=== PATIENT | female | born 1970 | race Caucasian/White ===

== ENCOUNTER 2016-09-18 10:46 | Emergency (ER) | payer BC ==
[~2016-09-18] VITALS: Ht 170.2 cm; Wt 89.0 kg
[2016-09-18 10:51] VITALS: BP 129/95; PULSE 110; RESP 16; TEMP 98.5; O2SAT 99
[2016-09-18] MEDS ORDERED: LEVO.075 PO (11:04)
[2016-09-18] MEDS ORDERED: KETOROLAC TROMETHAMINE 60 MG/2 ML (IM) VIAL IM ONE (11:15)
[2016-09-18] MEDS ORDERED: ORPHENADRINE INJ 60 MG/2 ML AMP IM ONE (11:15)
--- NOTE | 2016-09-18 11:25 | PD ---
HPI Chief Complaint: Musculoskeletal Complaint Time Seen by Provider: 11:22 Travel History International Travel<30 days: No Contact w/Intl Traveler<30days: No Traveled to known affect area: No History of Present Illness HPI Patient is a 46-year-old female with chief complaint of right shoulder pain. Present for 4 days. She has had problems off and on for several months similarly. She states after waking recently she had tightness in the posterior shoulder. Occasional have burning pain there as well that radiates down the posterior arm and into the right fifth finger. She has an occasional paresthesia in the fourth and fifth digit but denies sensation loss or weakness. She denies any neck pain or history of neck trauma or surgery. She denies any trauma to the shoulder. She states ibuprofen does help and doesn't be better after she moves it some. No specific provocative maneuvers but with movements it does appear to be worse. She denies any chest pain or shortness of breath. She denies any fevers. She denies . PFSH Past Medical History Thyroid Disease: Yes ?: Not LMP: YESTERDAY Past Surgical History Other Surgery: Yes (ADENOIDS, LASIK) Social History Alcohol Use: Yes Tobacco Use: No Substance Use: No Allergies-Medications (Allergen,Severity, Reaction): Coded Allergies: No Known Allergies (Unverified , 09/18/16) Reported Meds & Prescriptions Reported Meds & Active Scripts Active Reported Synthroid (Levothyroxine Sodium) 75 Mcg Tab 75 Mcg PO DAILY Review of Systems Except as stated in HPI: all other systems reviewed are Neg Physical Exam Narrative GENERAL: Well-developed and well-nourished adult female in no acute distress. SKIN: Warm and dry. Good turgor without tenting. HEAD: Normocephalic and atraumatic. EYES: PERRL bilaterally, 5mm. EOMI bilaterally. No injection or icterus present. No proptosis. Lids without edema or erythema. ENT: Buccal mucosa pink and moist. Oropharynx free of erythema, tonsillar hypertrophy, masses, swelling, asymmetry and exudates. Uvula midline and airway patent. NECK: Supple, no midline tenderness, crepitus or step-offs. Trachea midline, no JVD. No cervical or facial lymphadenopathy. CARDIOVASCULAR: Regular rate and rhythm without murmurs, rubs, clicks or gallops. Radial pulses 2+ bilaterally. RESPIRATORY: Clear to auscultation bilaterally with symmetrical rise and fall, no distress or use of accessory muscles. MUSCULOSKELETAL: Right shoulder and upper back is grossly unremarkable, no edema or discoloration. The right upper trapezius is an active spasm is tender to palpation. No pain with palpation of the rhomboids or scapula. No thoracic midline tenderness. Patient has pain with palpation of the right medial clavicular joint as well. Range of motion in the shoulder but does have some pain with abduction and flexion. Positive empty can test for supraspinatus pain. No gait disturbances. Patient freely moving all four extremities spontaneously. Extremities without clubbing, cyanosis, or edema. No obvious deformities. NEUROLOGIC: CN II-XII grossly intact. Awake and alert. Strength 5/5 bilateral shoulder flexion, shoulder extension, shoulder abduction, shoulder adduction, elbow flexion, elbow extension. Sensation intact and strength 5/5 over radial, median, and ulnar nerve distributions bilaterally. Bilateral triceps, biceps, brachioradialis DTRs 2+. Negative bilateral Baker sign. Normal speech. PSYCHIATRIC: Appropriate mood and affect; insight and judgment normal. Data Data Last Documented VS Vital Signs Date Time Temp Pulse Resp B/P Pulse Ox O2 Delivery O2 Flow Rate FiO2 09/18/16 10:51 98.5 110 16 129/95 99 Orders Spine, Cervical Compl(Rxm2aex) (09/18/16 11:15) Ketorolac Inj (Toradol Inj) (09/18/16 11:15) Orphenadrine Inj (Norflex Inj) (09/18/16 11:15) Shoulder, Complete (>2vws) (09/18/16 11:25) [facility] Medical Decision Making Medical Screen Exam Complete: Yes Emergency Medical Condition: Yes Interpretation(s) Last 24 hours Impressions Shoulder X-Ray 09/18/16 1125 Signed Impressions: Service Date/Time: Sunday, September 18, 2016 11:31 - CONCLUSION: Normal examination for a patient of this age. Ge Saldaña MD Cervical Spine X-Ray 09/18/16 1115 Signed Impressions: Service Date/Time: Sunday, September 18, 2016 11:22 - CONCLUSION: 1. Primary degenerative changes involving the mid to lower cervical spine. 2. Disc space narrowing at C5-6 and C6-7. Ge Saldaña MD Differential Diagnosis Cervical HNP versus Rotator cuff tendinitis versus muscle spasm versus acromioclavicular arthritis versus acromial bursitis versus muscle spasm Narrative Course Patient is a 46-year-old female with right shoulder pain for 4 days. She denies any trauma or injury. Has had similar symptoms in the past. It is alleviated somewhat with movement and ibuprofen. Certain movements make the pain worse. The pain clearly has muscular skeletal component as there is active muscle spasm and tenderness to palpation of the trapezius and evidence of supraspinatus tendinitis. She does have symptoms of radiculopathy without "red flag "use. She is neurovascularly intact. Patient is given Toradol and Norflex ordered x-ray of the C-spine and right shoulder. Shoulder x-ray unremarkable. Cervical x-ray shows primary degenerative changes involving the mid to lower cervical spine as well as this during at C5 6 and C6 7. Patient pain was approximately 3 with Toradol and Norflex. I believe that she has tendinitis and resultant muscle spasm with some probable cervical radiculopathy. As she is neurovascularly intact. There is no emergent need for MRI or intervention. I stated the patient that she should follow up with her PCP in one to 2 days and request MRI. Return for any acute worsening of symptoms.See discharge paperwork for further instructions. The plan was discussed with the patient who acknowledged their understanding and agreement. Reinforced the follow-up with primary care is critically important. Patient instructed on emergent conditions that should prompt return to ED. Diagnosis Primary Impression: Cervical radiculopathy Additional Impression: Muscle spasm Patient Instructions: Cervical Radiculopathy (ED), General Instructions, Muscle Spasm (ED) Additional Instructions: Rest for 24 hours, then gradually resume normal activity Avoid maneuvers or positions that aggravate the pain Avoid twisting/bending or lifting heavy items Take medications as prescribed Your medications may cause drowsiness. Do not take with alcohol or sedatives. Do not operate a motor vehicle or heavy machinery while on medication. Warm, moist heat applied to painful areas hourly as needed Try to massage and stretch affected muscles after applying heat to speed recovery Follow-up with PCP in 1-2 days Return to ED for any acute worsening of symptoms Med/Other Pt SpecificInfo: Prescription(s) given Scripts Methocarbamol (Robaxin)750 Mg Vle599 Mg PO QID PRN (MUSCLE SPASM) #40 TAB 2 tabs QID for 2 days, then 1 tab QID thereafter Prov:Zaina Martinez DO 09/18/16 Naproxen Sodium DS 550 Mg [id number] Mg PO BID #14 TAB Prov:Zaina Martinez DO 09/18/16 Disposition: 01 DISCHARGE HOME Condition: Stable Basil Sanford III Sep 18, 2016 11:25
--- NOTE | 2016-09-18 12:04 | RADHPO ---
EXAM DATE/TIME: 09/18/2016 11:22 [facility] COMPARISON: No previous studies available for comparison. INDICATIONS : Neck and right shoulder area pain, no known injury MEDICAL HISTORY : None. SURGICAL HISTORY : None. ENCOUNTER: Initial ACUITY: 3 days PAIN SCORE: 10/10 LOCATION: Bilateral neck FINDINGS: Five view examination was performed. There is normal alignment and curvature of the vertebral bodies down to the level of C7. No evidence of fracture or subluxation. Vertebral body height is normal. There is primary bony degenerative changes throughout the cervical spine. There is some displacement at C5-6 and C6-7. The prevertebral soft tissues are of normal thickness. The atlanto-axial articulat ion is intact. CONCLUSION: 1. Primary degenerative changes involving the mid to lower cervical spine. 2. Disc space narrowing at C5-6 and C6-7. Ge Saldaña MD on September 18, 2016 at 12:01 Board Certified Radiologist. This report was verified electronically.
--- NOTE | 2016-09-18 12:04 | RADHPO ---
EXAM DATE/TIME: 09/18/2016 11:31 [facility] COMPARISON: No previous studies available for comparison. INDICATIONS : Right shoulder and neck area pain, no known injury, limited ROM MEDICAL HISTORY : None. SURGICAL HISTORY : None. ENCOUNTER: Initial ACUITY: 3 days PAIN SCORE: 10/10 LOCATION: Right shoulder FINDINGS: Multiple view examination of the right shoulder demonstrates no evidence of fracture or dislocation. The glenohumeral and acromioclavicular joints are maintained. There is normal range of motion betwe en internal and external rotation. Bony mineralization is normal. CONCLUSION: Normal examination for a patient of this age. Ge Saldaña MD on September 18, 2016 at 12:02 Board Certified Radiologist. This report was verified electronically.
[2016-09-18] MEDS ORDERED: ROBA750T PO (12:18)
[2016-09-18] MEDS ORDERED: NAPR550T3 PO (12:18)
== END 2016-09-18 12:31 | disposition home or self-care (01) ==
LOC: PHEFT 10:46
DX: M54.12 Radiculopathy, cervical region (principal); M62.838 Other muscle spasm; E07.9 Disorder of thyroid, unspecified
CPT/HCPCS: 72050; 73030; 96372; 99283; J1885; J2360